=== PATIENT | female | born 1960 | race Caucasian/White ===

== ENCOUNTER 2018-12-06 18:02 | Emergency (ER) | payer MEDICARE, OTHER ==
[2018-12-06 18:08] VITALS: BP 136/77
[2018-12-06] MEDS ORDERED: ONDANSETRON HCL INJ/PF 4 MG/2 ML SDV IV ONE (18:24)
--- NOTE | 2018-12-06 18:26 | ER Document Report ---
ED Medical Screen (RME) - General Chief Complaint: Abdominal Pain Stated Complaint: ABDOMINAL PAIN Time Seen by Provider: 12/06/18 18:15 TRAVEL OUTSIDE OF THE [place] IN LAST 30 DAYS: No - HPI Notes: 12/06/18 18:25 Patient is a 58-year-old female with a history of Sjogren's syndrome and other autoimmune process who presents emergency department complaining of upper and lower abdominal pain which she has had over the last couple weeks. Patient states that she was evaluated by her family doctor in [place] this past week and had a CT performed as well as a pelvic ultrasound. Patient was told by her doctor that she should come here because she is now having more upper abdominal pain for evaluation and possible further imaging. She has associated nausea without vomiting. Denies any headache, fever, neck pain, URI, sore throat, chest pain, palpitations, syncope, cough, shortness of breath, wheeze, dyspnea, vomiting/diarrhea, urinary retention, dysuria, hematuria, or rash. Pt pulled up her CT and US report: 4mm ureteral stone and 4mm kidney stone left side. Nabothian cervical cyst noted. I have treated and performed a rapid initial assessment of this patient. A comprehensive ED assessment and evaluation of the patient, analysis of test results and completion of medical decision making process will be conducted by additional ED providers. PHYSICAL EXAMINATION: GENERAL: Well-appearing, well-nourished and in no acute distress. A&Ox4. Answers questions appropriately. LUNGS: Breath sounds clear to auscultation bilaterally and equal. No wheezes rales or rhonchi. HEART: Regular rate and rhythm without murmurs, rubs, gallops. ABDOMEN: Soft, nondistended abdomen. No guarding, no rebound. Normal bowel sounds present. No CVA tenderness bilaterally. + epigastric tenderness (cannot elicit thorough abd exam w/o table, however). Extremities: No cyanosis, clubbing, or edema b/l. NEUROLOGICAL: Normal speech, normal gait. PSYCH: Normal mood, normal affect. - Related Data Allergies/Adverse Reactions: ampicillin Allergy (Verified 12/06/18 18:04) milnacipran [From Savella] Allergy (Verified 12/06/18 18:04) Quinolones Allergy (Verified 12/06/18 18:04) Physical Exam - Vital signs Vitals: Temp Pulse Resp BP Pulse Ox 98.5 F 72 18 136/77 H 94 12/06/18 18:07 12/06/18 18:07 12/06/18 18:07 12/06/18 18:07 12/06/18 18:07 Course - Vital Signs Vital signs: Temp Pulse Resp BP Pulse Ox 98.5 F 72 18 136/77 H 94 12/06/18 18:07 12/06/18 18:07 12/06/18 18:07 12/06/18 18:07 12/06/18 18:07
[2018-12-06 19:15] LABS: ABSOLUTE BASOPHILS # (AUTO) 0.1 10^3/uL (0.0-0.2); ABSOLUTE EOSINOPHILS # (AUTO) 0.2 10^3/uL (0.0-0.6); ABSOLUTE LYMPHOCYTES (AUTO) 2.7 10^3/uL (0.5-4.7); ABSOLUTE MONOCYTES (AUTO) 0.5 10^3/uL (0.1-1.4); ABSOLUTE NEUT (AUTO) 2.9 10^3/uL (1.7-8.2); BASOPHILS % (AUTO) 1.6 % (0-2); HEMATOCRIT 45.6 % (36.0-47.0); HEMOGLOBIN 15.7 g/dL (12.0-15.5); LYMPHOCYTES % (AUTO) 42.5 % (13-45); MEAN CORPUSCULAR HEMOGLOBIN 29.8 pg (27.0-33.4); MEAN CORPUSCULAR HGB CONC 34.4 g/dL (32.0-36.0); MEAN CORPUSCULAR VOLUME 87 fl (80-97); MONOCYTES % (AUTO) 7.9 % (3-13); PLATELET COUNT 290 10^3/uL (150-450); RED BLOOD COUNT 5.26 10^6/uL (3.72-5.28); TOTAL CELLS COUNTED % (AUTO) 100 %; WHITE BLOOD COUNT 6.4 10^3/uL (4.0-10.5)
[2018-12-06 19:27] LABS: APPEARANCE,URINE SLIGHTLY-CLOUDY; BILIRUBIN,URINE SMALL (NEGATIVE); COLOR,URINE AMBER; GLUCOSE, URINE NEGATIVE (NEGATIVE); KETONES,URINE TRACE mg/dL (NEGATIVE); LEUKOCYTE ESTERASE,URINE TRACE (NEGATIVE); NITRITE,URINE NEGATIVE (NEGATIVE); PROTEIN,URINE NEGATIVE (NEGATIVE); URINE SPECIFIC GRAVITY 1.024
[2018-12-06] MEDS ORDERED: NORMAL SALINE 1000 ML 1,000 ML IV ONE (19:39)
[2018-12-06] MEDS ORDERED: HYDROMORPHONE HCL INJ/PF 2 MG/ML AMPULE IV ONE (19:39)
[2018-12-06 19:43] LABS: ALANINE AMINOTRANSFERASE 44 U/L (9-52); ALBUMIN 4.4 g/dL (3.5-5.0); ALKALINE PHOSPHATASE 86 U/L (38-126); ANION GAP 7 (5-19); ASPARTATE AMINO TRANSFERASE 41 U/L (14-36); BILIRUBIN,DIRECT 0.4 mg/dL (0.0-0.4); BILIRUBIN,TOTAL 0.5 mg/dL (0.2-1.3); BLOOD UREA NITROGEN 12 mg/dL (7-20); CALCIUM 10.3 mg/dL (8.4-10.2); CARBON DIOXIDE 29 mmol/L (22-30); CHLORIDE 105 mmol/L (98-107); GLUCOSE 96 mg/dL (75-110); LIPASE 190.6 U/L (23-300); POTASSIUM 4.6 mmol/L (3.6-5.0); SODIUM 140.8 mmol/L (137-145); TOTAL PROTEIN 7.1 g/dL (6.3-8.2)
--- NOTE | 2018-12-06 19:45 | ER Document Report ---
ED General - General Chief Complaint: Abdominal Pain Stated Complaint: ABDOMINAL PAIN Time Seen by Provider: 12/06/18 18:15 Mode of Arrival: Ambulatory Information source: Patient TRAVEL OUTSIDE OF THE [place] IN LAST 30 DAYS: No - HPI Patient complains to provider of: All over abdominal pain, bad diarrhea, and extreme low back pain Onset: Last week Onset/Duration: Sudden Quality of pain: Sharp, Stabbing Severity: Severe Pain Level: 5 Associated symptoms: Diarrhea. denies: Chills, Fever, Nausea, Vomiting Exacerbated by: Denies Relieved by: Denies Similar symptoms previously: No Recently seen / treated by doctor: No Notes: 58-year-old female here with all over abdominal pain, distention, foul-smelling diarrhea. Patient started having symptoms of low abdominal/pelvic cramping and discomfort and low back pain back in [place] last week. She states that she went into see her S[employer]ICING [employer] and she had a Pap smear/pelvic exam, had an pelvic ultrasound and also had a CT abdomen and pelvis with IV contrast. She was not aware of any of her scan or ultrasound results before she left [place] to come down here to visit her son who is in the . - Related Data Allergies/Adverse Reactions: ampicillin Allergy (Verified 12/06/18 18:04) milnacipran [From Savella] Allergy (Verified 12/06/18 18:04) Quinolones Allergy (Verified 12/06/18 18:04) Past Medical History - General Information source: Patient - Social History Smoking Status: Former Smoker Chew tobacco use (# tins/day): No Frequency of alcohol use: None Drug Abuse: None Family History: Reviewed & Not Pertinent Patient has suicidal ideation: No Patient has homicidal ideation: No Renal/ Medical History: Denies: Hx Peritoneal Dialysis Past Surgical History: Reports: Hx Section, Hx Genitourinary Surgery - D & C, Hx Orthopedic Surgery - lower back Review of Systems - Review of Systems Notes: Constitutional: No fevers. No chills. EENT: No eye redness. No eye pain. No ear pain. No sore throat. Cardiovascular: No chest pain. No palpitations. Respiratory: No cough. No shortness of breath. No respiratory distress. Gastrointestinal: Positive for abdominal pain. No nausea, vomiting. Foul- smelling diarrhea Genitourinary: Atraumatic. No lesions. No pain. No discharge. Musculoskeletal: Atraumatic. No swelling. No deformities. Skin: No rash or lesions. Lymphatic: No swollen lymph nodes. Neurologic: No headache. No syncope. Psychiatric: No suicidal or homicidal ideation. Physical Exam - Vital signs Vitals: Temp Pulse Resp BP Pulse Ox 98.5 F 72 18 136/77 H 94 12/06/18 18:07 12/06/18 18:07 12/06/18 18:07 12/06/18 18:07 12/06/18 18:07 - Notes Notes: General: Well-developed, well-nourished. Non-toxic appearing. In obvious discomfort. Cardiac: Well-perfused. Regular rate and rhythm. No murmurs, rubs, or gallops. Pulmonary: No respiratory distress. No cyanosis. Bilateral lung ndiaye are clear to auscultation. Abdominal: Abdomen is obese. Does look somewhat distended however. Bowel sounds are present in all 4 quadrants. Upper abdomen is diffusely tender with greater tenderness in the epigastrium and right upper quadrant. HEENT: Head is atraumatic. Conjunctivae not reddened. No tearing. PERRL. EOMI. Orbits atraumatic. No periorbital swelling or erythema. Oropharynx is without erythema, swelling, or exudates. Neck: Supple. No adenopathy. No meningismus. Dermatologic: Warm with good turgor. No rash. Atraumatic. Chest: Atraumatic. No chest wall tenderness to palpation. Musculoskeletal: Moves all extremities well. No range of motion deficits. no muscular or joint tenderness. No paraspinal muscle tenderness. no midline spinal tenderness or step-off. Genitourinary: Examination deferred Neurologic: No gross neurologic deficits. Psychiatric: Normal mood. Course - Re-evaluation Re-evalutation: 12/06/18 19:46 Patient states that the quality and the severity of her abdominal discomfort has changed quite a bit. Initially it started in her low back and her pelvic area. I read the results of her CT scan of her abdomen and pelvis with IV contrast as well as the pelvic ultrasound. There was a questionable uterine body mass which was small which was read as a possible nabothian cysts but needed to be further characterized. Also there was a 0.4cm left distal ureteral kidney stone with no evidence of hydronephrosis. Patient states her doctor did a urinalysis which was "normal". Also blood work to check her kidney functions was done and that was also "normal". 12/06/18 22:31 All in all patient has a pretty normal workup here. This CT does not show any evidence of a kidney stone. There is no obvious colitis or anything else. Sounds like the patient had a colonoscopy up in [place] not to too long ago. In any event I think the answer to her abdominal pain is probably going to be found in the GI doctor's office. Her back pain seems strange to be hurting so much. I offered a x-ray series just to evaluate it make sure there was no evidence of any type of cancerous process. They decided that they would get all that done when they return home to [place]. I advised him to come back to the emergency department if her symptoms were getting any worse but otherwise to follow-up as quickly as possible with GI specialist in [place]. - Vital Signs Vital signs: Temp Pulse Resp BP Pulse Ox 98.5 F 72 18 136/77 H 94 12/06/18 18:07 12/06/18 18:07 12/06/18 18:07 12/06/18 18:07 12/06/18 18:07 - Laboratory Result Diagrams: 12/06/18 19:01 12/06/18 19:01 Laboratory results interpreted by me: 12/06/18 12/06/18 12/06/18 19:01 19:01 19:01 Hgb 15.7 H Calcium 10.3 H AST 41 H Urine Ketones TRACE H Urine Bilirubin SMALL H Urine Urobilinogen 4.0 H Ur Leukocyte Esterase TRACE H Discharge - Discharge Clinical Impression: Bloating Abdominal pain Qualifiers: Abdominal location: generalized Qualified Code(s): R10.84 - Generalized abdominal pain Low back pain Qualifiers: Chronicity: acute Back pain laterality: unspecified Sciatica presence: without sciatica Qualified Code(s): M54.5 - Low back pain Condition: Good Instructions: Abdominal Pain ([facility]), Antinausea Medication ([facility]), Antispasmodics ([facility]), Oral Narcotic Medication ([facility]) Prescriptions: Oxycodone HCl/Acetaminophen [Percocet 7.5-325 mg Tablet] 1 each PO Q4HP PRN #15 tablet PRN Reason: Metoclopramide HCl [Reglan 10 mg Tablet] 10 mg PO Q6HP PRN #20 tablet PRN Reason: Dicyclomine HCl [Bentyl 20 mg Tablet] 20 mg PO QID #40 tablet Referrals: product marketing programs manager in [place], your [Other] - 12/11/18
--- NOTE | 2018-12-06 21:03 | RADIOLOGY REPORT (SQ) ---
EXAM DESCRIPTION: CT ABDOMEN PELVIS WITH IV CONTRAST COMPLETED DATE/TME: 12/06/2018 19:38 CLINICAL HISTORY: 58 years, Female, abdominal pain, foul smelling diarrhea COMPARISON: None. TECHNIQUE: Axial images with IV contrast. Sagittal coronal reconstruction. Delayed images of the kidneys. All CT scanners at this facility use dose modulation, iterative reconstruction, and/or weight based dosing when appropriate to reduce radiation dose to as low as reasonably achievable (ALARA). FINDINGS: Mild prominence of left atrium of the heart. Lung bases are unremarkable. Liver, spleen, pancreas, adrenal glands, kidneys, aorta and para-aortic regions are unremarkable. No suspicious bowel or peritoneal abnormalities. The descending colon is relatively contracted. There is no obvious colitis. CT of the pelvis demonstrates anteflexed nonenlarged uterus. There is a cyst projecting just right of the midline adjacent to the cervix of the uterus. Not in a typical location for an adnexal cyst. Measures 3 x 2.6 x 2.5 cm. The distal colon is unremarkable. No adenopathy or free fluid. IMPRESSION: 1. No obvious acute bowel abnormalities. 2. Cystic structure projecting inferior to the cervix of the uterus and not typical location for adnexal cyst. Suggest gynecological follow-up. Not clear if this is clinically or acutely significant. )
== END 2018-12-06 22:57 | disposition home or self-care (01) ==
LOC: ER 18:02
DX: R10.84 Generalized abdominal pain (principal); M54.5 Low back pain; R19.7 Diarrhea, unspecified; R14.0 Abdominal distension (gaseous); Z88.0 Allergy status to penicillin; Z88.6 Allergy status to analgesic agent; Z87.891 Personal history of nicotine dependence
CPT/HCPCS: 99284; 96374; 96375; 36415; 87086; 83690; 85025; 80053; 81001; 74177; J1170; J2405; J7030